=== PATIENT | male | born 1985 | race Caucasian/White ===

== ENCOUNTER 2019-01-15 19:41 | Emergency (ER) | payer BC ==
[~2019-01-15] VITALS: Ht 162.6 cm; Wt 74.8 kg
[2019-01-15 19:41] VITALS: BP_SYST 151
--- NOTE | 2019-01-15 19:41 | NUR ---
Patient to ER [facility] for evaluation. Side rails up.
--- NOTE | 2019-01-15 19:42 | NUR ---
Patient brought in custody of [facility]'s Department Deputies for ok to book. Patient appears to be in stable condition. Patient does not verbalize any complaints. Will continue to monitor.
--- NOTE | 2019-01-15 19:45 | NUR ---
ER at bedside examining patient.
[2019-01-15 19:54] VITALS: BP_SYST 138
--- NOTE | 2019-01-15 19:54 | NUR ---
Patient and law enforcement given written and verbal discharge instructions and verbalizes understanding. ER MD discussed with patient the results and treatment provided. Patient in stable condition. ID arm band removed. No Rx given. Patient educated on pain management and to follow up with PMD. Pain Scale 0/10 Opportunity for questions provided and answered.
== END 2019-01-15 19:54 ==
LOC: SED 19:41
DX: R45.1 Restlessness and agitation (principal); Z02.89 Encounter for other administrative examinations
CPT/HCPCS: 99283